=== PATIENT | male | born 1945 | race Hispanic/Latino ===

== ENCOUNTER 2021-07-03 06:43 | Day surgery (SDC) | payer MEDICARE ==
[2021-07-03 17:01] VITALS: BP 138/53
== END 2021-07-03 17:32 | disposition home or self-care (01) ==
LOC: CATHLABREC 06:43
PROVIDERS: ATTEND Radiology Diagnostic Radiology
DX: I87.1 Compression of vein (principal); I11.0 Hypertensive heart disease with heart failure; I50.9 Heart failure, unspecified; I48.91 Unspecified atrial fibrillation; M19.90 Unspecified osteoarthritis, unspecified site; J43.9 Emphysema, unspecified; Z79.899 Other long term (current) drug therapy; Z98.890 Other specified postprocedural states
CPT/HCPCS: 36415; 37238; 37239; 75822; 76937; 80048; 85025; 85610; 85730; C1725; C1769; C1876; C1887; C1894; J0690; J1644; J2250; J3010; J7040; Q9967